=== PATIENT | male | born 1995 | race Caucasian/White ===

== ENCOUNTER 2018-01-02 19:01 | Emergency (ER) | payer OTHER ==
[~2018-01-02] VITALS: Ht 180.3 cm; Wt 95.7 kg
[~2018-01-02 19:01] MED LIST: CLEOCIN HCL150 MG PO; IBUPROFEN 800800 M1 PO; LORTABELXR PO; NOHOMEMEDICATIONS; NORCO 5-325 TA1 EACH PO; TRAMADOL 50 MG50 MG PO
[2018-01-02] MEDS ORDERED: OCUFLOX5 ML OPHTHALMIC (19:51)
[2018-01-02 20:04] VITALS: BP 152/87
== END 2018-01-02 20:04 | disposition home or self-care (01) ==
LOC: M.ERS 19:01
DX: S05.02XA Injury of conjunctiva and corneal abrasion without foreign body, left eye, initial encounter (principal); F17.210 Nicotine dependence, cigarettes, uncomplicated; X58.XXXA Exposure to other specified factors, initial encounter; Y93.89 Activity, other specified; Y92.89 Other specified places as the place of occurrence of the external cause; Y99.8 Other external cause status